=== PATIENT | female | born 1945 | race Caucasian/White ===

== ENCOUNTER 2020-03-05 17:46 | Inpatient (IN) | payer MEDICARE, OTHER ==
[~2020-03-05] VITALS: Ht 160 cm; Wt 43.0 kg
[2020-03-05 18:52] LABS: BASO % 0.3 % (0.0-2.0); EOS # 0.1 (0.0-0.7); GRAN # 4.1 (1.4-6.5); GRAN % 69.8 % (42.2-75.2); HEMATOCRIT 42.9 % (37.0-47.0); HEMOGLOBIN 14.2 g/dl (12.5-16.0); LYMPH # 1.1 (1.2-3.4); LYMPH % 18.6 % (20.0-51.0); MEAN CELL VOLUME 92 fl (80.0-100.0); MEAN CORPUSCULAR HEMOGLOBIN 31 pg (27.0-31.0); MEAN CORPUSCULAR HGB CONC 33 g/dl (33.0-37.0); MEAN PLATELET VOLUME 9.3 fl (7.4-10.4); MONO # 0.6 (0.1-0.6); PLATELET COUNT 288 K/mm3 (130-400); RED BLOOD COUNT 4.65 M/mm3 (4.10-5.30); REDCELL DISTRIBUTION WIDTH-CV 12.1 % (11.5-14.5)
[2020-03-05 19:04] LABS: ALANINE AMINOTRANSFERASE 43 U/L (4-34); ALBUMIN 5.1 gm/dL (3.5-5.0); ALKALINE PHOSPHATASE 117 U/L (50-136); ANION GAP 17 mmol/L (7-16); AST,SGOT 34 U/L (15-37); BLOOD UREA NITROGEN 35 mg/dL (7-17); CALCIUM 9.7 mg/dL (8.4-10.2); CHLORIDE 95 mmol/L (98-107); CREATININE, serum 1.84 (0.52-1.25); GLUCOSE 114 mg/dL (74-106); LIPASE 1508 U/L (23-300); POTASSIUM 5.3 mmol/L (3.4-5.0); SODIUM 123 mmol/L (137-145); TOTAL PROTEIN 8.8 gm/dL (6.4-8.2)
[2020-03-05 19:10] LABS: C-REACTIVE PROTEIN < 0.5 mg/dL (0.0-0.9); CARBON DIOXIDE 11 mmol/L (22-30)
[2020-03-05 19:55] LABS: COLLECTION METHOD CLEAN CATCH
[2020-03-05 20:03] LABS: MUCOUS Present /lpf; PH 5 (5-8); SQUAMOUS EPITHELIAL 0-2 /hpf; URINE APPEARANCE Clear; URINE BACTERIA None Seen /hpf; URINE BILIRUBIN Negative (NEGATIVE); URINE BLOOD Negative (NEGATIVE); URINE COLOR Yellow; URINE GLUCOSE Negative (NEGATIVE); URINE KETONE Negative (NEGATIVE); URINE LEUKOCYTE ESTERASE Negative (NEGATIVE); URINE NITRATE Negative (NEGATIVE); URINE PROTEIN(semi-quant) 1+ (NEGATIVE); URINE RBC 0-2 /hpf; URINE UROBILINOGEN Negative (NEGATIVE)
[2020-03-05] MEDS ORDERED: K-TAB20 PO (20:22)
[2020-03-05] MEDS ORDERED: COLESTID 1GM1 G PO (20:23)
[2020-03-05] MEDS ORDERED: ELIQUIS 2.5 PO (20:24)
[2020-03-05] MEDS ORDERED: FLONASE NASAL S16 GM NS (20:26)
[2020-03-05] MEDS ORDERED: NIZORAL CR 30GM TOP (20:28)
[2020-03-05] MEDS ORDERED: SYNTHROID 0.0.025 MG PO (20:29)
[2020-03-05] MEDS ORDERED: IMODIUM 2MG CAPS2 MG PO (20:30)
[2020-03-05] MEDS ORDERED: MULTI-VITAMIN W1 TA2 PO (20:30)
[2020-03-05] MEDS ORDERED: ZOFRAN ODT4 MG PO (20:31)
[2020-03-05] MEDS ORDERED: PAXIL 20MG20 MG PO (20:32)
[2020-03-05] MEDS ORDERED: ZOCOR 10MG10 MG PO (20:33)
[2020-03-05] MEDS ORDERED: SODIUM BICARBO650 MG PO (20:34)
[2020-03-05] MEDS ORDERED: CARAFATE S1 GM/10 ML PO (20:35)
[2020-03-05] MEDS ORDERED: XYZAL5 MG PO (20:35)
[2020-03-05 22:37] VITALS: BP 136/76; PULSE 107; TEMP 97.6
--- NOTE | 2020-03-05 22:40 | NUR ---
Patient arrived to medical unit from ER at this time.
[2020-03-05 22:43] LABS: CHOLESTEROL RISK RATIO 2.2
--- NOTE | 2020-03-05 23:38 | NUR ---
Patient alert and oriented x 4, and able to make needs known. Denies having pain and discomfort at this time. Peripheral IV to right forearm. NS started at 125 ml/hr per orders. Site without redness, warmth, swelling, and pain. Denies having SOB and dyspnea. LS CTA. Respirations even and unlabored. HRR. Telemetry in place: sinus tachycardia. Capillary refill less than 3 seconds. Non-tenting skin turgor. BSAx4. Abdomen soft and non-tender. No edema. Ileostomy-patient independent with cares. Voices no questions, needs, or concerns at this time. Resting in bed with call light within reach.
[2020-03-06 03:44] VITALS: BP 122/67; PULSE 102; TEMP 98.2
[2020-03-06 06:32] LABS: BASO % 0.3 % (0.0-2.0); EOS # 0.1 (0.0-0.7); EOS % 1.3 % (0-4.0); GRAN # 4.3 (1.4-6.5); GRAN % 64.4 % (42.2-75.2); LYMPH # 1.5 (1.2-3.4); LYMPH % 21.9 % (20.0-51.0); MEAN CELL VOLUME 93 fl (80.0-100.0); MEAN CORPUSCULAR HGB CONC 34 g/dl (33.0-37.0); MEAN PLATELET VOLUME 9.6 fl (7.4-10.4); MONO # 0.8 (0.1-0.6); MONO % 11.8 % (1.7-9.3); PLATELET COUNT 224 K/mm3 (130-400); RED BLOOD COUNT 3.72 M/mm3 (4.10-5.30); REDCELL DISTRIBUTION WIDTH-CV 12.2 % (11.5-14.5)
[2020-03-06 06:40] LABS: HEMATOCRIT 34.5 % (37.0-47.0); HEMOGLOBIN 11.7 g/dl (12.5-16.0); MEAN CORPUSCULAR HEMOGLOBIN 31 pg (27.0-31.0)
[2020-03-06 06:46] LABS: ALBUMIN 3.9 gm/dL (3.5-5.0); BILIRUBIN,TOTAL 0.7 mg/dL (0.0-1.0); CALCIUM 8.6 mg/dL (8.4-10.2); CREATININE, serum 1.39 (0.52-1.25); POTASSIUM 4.1 mmol/L (3.4-5.0); TOTAL PROTEIN 6.5 gm/dL (6.4-8.2)
--- NOTE | 2020-03-06 07:39 | NUR ---
Patient has denied having pain and discomfort. Continues on IV fluids per orders. Voices no questions, needs, or concerns at this time. Resting in bed with call light within reach. Tolerating clear liquids well. Denies having nausea and upset stomach.
[2020-03-06 07:53] VITALS: BP 130/62; PULSE 102; TEMP 97.6
--- NOTE | 2020-03-06 08:20 | NUR ---
PT REPORTS NOT SLEEPING WELL, DENIES PAIN/DISCOMFORT, HAS ILLEOSTOMY AND IS INDEPENDENT IN ITS CARE, PT TACHYCARDIC, PT ASSESSMENT PERFORMED, VITALS REVIEWED, MEDICATIONS GIVEN, JUICE BROUGHT IN FOR PT, NO OTHER NEEDS.
[2020-03-06 11:51] VITALS: BP 129/59; PULSE 58; TEMP 97.8
--- NOTE | 2020-03-06 14:54 | NUR ---
Plan to return home in [place] independently. Patient reports that she resides alone but has daughter locally to help support her if needed. Patient reports that her Dtr with provide transportation. Carolyn Wynne . Patient reports that she has a loop recorder and her Cardiac Dr. is Ashish. PCP is Jessa Floyd. Patient preference [facility] for medications. No DPOA but reports DTR will make decisions. Patient denies any other DME use. Will continue to monitor for care. Educated on services.
[2020-03-06 15:50] VITALS: BP 114/59; PULSE 93; TEMP 98.1
--- NOTE | 2020-03-06 17:26 | NUR ---
PT DENIES PAIN/DISCOMFORT, DENIES NAUSEA, FLUIDS RUNNING, MEDICATIONS GIVEN, ENEVENTFUL SHIFT, OVERALL.
[2020-03-06 20:33] VITALS: BP 122/62; PULSE 87; TEMP 98.1
[2020-03-06 23:59] VITALS: BP 111/56; PULSE 95; TEMP 98.2
[2020-03-07 03:54] VITALS: BP 109/56; PULSE 91; TEMP 98.1
[2020-03-07 06:22] LABS: EOS # 0.1 (0.0-0.7); EOS % 1.9 % (0-4.0); GRAN # 2.3 (1.4-6.5); GRAN % 60.9 % (42.2-75.2); LYMPH % 26.7 % (20.0-51.0); MEAN CELL VOLUME 93 fl (80.0-100.0); MEAN CORPUSCULAR HGB CONC 33 g/dl (33.0-37.0); MEAN PLATELET VOLUME 8.8 fl (7.4-10.4); MONO # 0.4 (0.1-0.6); MONO % 10.2 % (1.7-9.3); PLATELET COUNT 181 K/mm3 (130-400); RED BLOOD COUNT 3.06 M/mm3 (4.10-5.30); REDCELL DISTRIBUTION WIDTH-CV 12.2 % (11.5-14.5)
[2020-03-07 06:30] LABS: HEMATOCRIT 28.5 % (37.0-47.0); MEAN CORPUSCULAR HEMOGLOBIN 31 pg (27.0-31.0)
[2020-03-07 06:32] LABS: HEMOGLOBIN 9.5 g/dl (12.5-16.0)
[2020-03-07 06:39] LABS: CALCIUM 8.1 mg/dL (8.4-10.2); CREATININE, serum 0.99 (0.52-1.25); POTASSIUM 3.5 mmol/L (3.4-5.0)
[2020-03-07 08:22] VITALS: BP 114/46; PULSE 92; TEMP 97.7
--- NOTE | 2020-03-07 09:19 | NUR ---
PT AOX4, PLEASANT, TOOK PILLS WITH JUICE, WENT OVER PILLS BEFORE GIVING, PT ASSESSMENT PERFORMED, VITALS REVIEWED, FRESH ICE WATER BROUGHT IN, PT EATING BREAKFAST, DENIES PAIN/N/V/D, NO OTHER NEEDS AT THIS TIME.
--- NOTE | 2020-03-07 10:43 | NUR ---
FLUIDS DETACHED FROM PT, MILK BROUGHT INTO PT PER PT REQUEST, NO OTHER NEEDS AT THIS TIME, DENIES PAIN/DISCOMFORT
--- NOTE | 2020-03-07 10:49 | NUR ---
Spoke with patient's RN regarding patient condition. RN reports that patient refused PT. Social work will follow up on Sunday.
[2020-03-07 11:12] VITALS: PULSE 106; TEMP 97.7
[2020-03-07 13:59] VITALS: BP 130/53; PULSE 115; TEMP 98.6
[2020-03-07 15:11] VITALS: BP 125/59; PULSE 105; TEMP 97.5
--- NOTE | 2020-03-07 17:04 | NUR ---
PT EAGER FOR DISCHARGE TOMORROW, DENIES PAIN/DISCOMFORT/N/V/D. PT AOX4, PLEASANT, CALL LIGHT WITHIN REACH, UNEVENTFUL SHIFT OVERALL, TOLERATING LOW FAT DIET WELL.
[2020-03-07 17:24] LABS: HEMATOCRIT 30.2 % (37.0-47.0)
--- NOTE | 2020-03-07 19:18 | NUR ---
PT ASSESSMENT COMPLETED. PT DENIES ANY PAIN OR DISCOMFORT. NO SOB. PT VSS. PT IS VERY EXCITED TO LEAVE TOMORROW. NO FURTHER CONCERNS CALL LIGHT WITHIN REACH.
[2020-03-08 01:12] VITALS: BP 128/70; PULSE 112; TEMP 98.5
[2020-03-08 04:10] VITALS: BP 107/52; PULSE 85; TEMP 98.1
[2020-03-08 06:20] LABS: BASO % 0.2 % (0.0-2.0); EOS # 0.1 (0.0-0.7); GRAN # 2.6 (1.4-6.5); GRAN % 63.4 % (42.2-75.2); LYMPH # 0.9 (1.2-3.4); LYMPH % 22.8 % (20.0-51.0); MEAN CELL VOLUME 95 fl (80.0-100.0); MEAN CORPUSCULAR HGB CONC 33 g/dl (33.0-37.0); MEAN PLATELET VOLUME 9.1 fl (7.4-10.4); MONO # 0.5 (0.1-0.6); MONO % 11.1 % (1.7-9.3); PLATELET COUNT 182 K/mm3 (130-400); RED BLOOD COUNT 3.05 M/mm3 (4.10-5.30); REDCELL DISTRIBUTION WIDTH-CV 12.4 % (11.5-14.5)
[2020-03-08 06:32] LABS: CREATININE, serum 1.12 (0.52-1.25); POTASSIUM 3.3 mmol/L (3.4-5.0)
[2020-03-08 06:40] LABS: HEMATOCRIT 28.9 % (37.0-47.0); HEMOGLOBIN 9.6 g/dl (12.5-16.0); MEAN CORPUSCULAR HEMOGLOBIN 31 pg (27.0-31.0)
[2020-03-08 07:55] VITALS: BP 104/52; PULSE 87; TEMP 98.1
--- NOTE | 2020-03-08 08:20 | NUR ---
PT PLEASANT, EAGER FOR BREAKFAST, VITALS REVIEWED, MEDICATIONS GIVEN, PT ALSO EAGER FOR DISCHARGE, NO OTHER NEEDS AT THIS TIME.
--- NOTE | 2020-03-08 09:28 | NUR ---
Initial visit; Patient thanked Spanish Instructor for looking in on her, offering comfort and prayer.
[2020-03-08 11:42] VITALS: BP 117/53; PULSE 90; TEMP 97.6
--- NOTE | 2020-03-08 13:38 | NUR ---
The patient is to discharge back home today, 03/08. SW presented and read the IM form outloud to the patient. The patient verbalized understanding and gave SW approval to sign the form on her behalf. SW provided her with a copy. No additional needs at this time.
--- NOTE | 2020-03-08 14:30 | NUR ---
PT LEFT VIA WHEELCHAIR WITH BELONGINGS, IV REMOVED, NO OTHER NEEDS AT THIS TIME.
== END 2020-03-08 14:30 | disposition home or self-care (01) | DRG 439 ==
LOC: COL.ER 17:46 → MEDICAL 20:21
PROVIDERS: Hospitalist; Physician Assistant; Student in an Organized Health Care Education/Training Program; ADMIT Internal Medicine
DX: K85.90 Acute pancreatitis without necrosis or infection, unspecified (principal); E87.1 Hypo-osmolality and hyponatremia; E87.2 Acidosis; N17.9 Acute kidney failure, unspecified; E44.0 Moderate protein-calorie malnutrition; Z68.1 Body mass index [BMI] 19.9 or less, adult; D64.9 Anemia, unspecified; N18.30 Chronic kidney disease, stage 3 unspecified; E87.5 Hyperkalemia; E87.6 Hypokalemia; I95.9 Hypotension, unspecified; R00.0 Tachycardia, unspecified; E86.0 Dehydration; I48.91 Unspecified atrial fibrillation; E78.5 Hyperlipidemia, unspecified; F32.9 Major depressive disorder, single episode, unspecified; E03.9 Hypothyroidism, unspecified; Z93.2 Ileostomy status; Z20.822 Contact with and (suspected) exposure to COVID-19
CPT/HCPCS: 99223-AI; 99233-AI; 99239; J2405; J7030